=== PATIENT | male | born 1965 | race Caucasian/White ===

== ENCOUNTER 2018-12-22 12:41 | Inpatient (IN) | payer OTHER ==
[~2018-12-22] VITALS: Ht 167.6 cm; Wt 88.0 kg
[2018-12-31] MEDS ORDERED: TEGRETOL200 MG PO (14:16)
[2018-12-31] MEDS ORDERED: GABAPENTIN600 MG PO (14:16)
[2019-01-07] MEDS ORDERED: NORFLEX100MG PO (08:06)
[2019-01-07] MEDS ORDERED: NAPROXEN SODIU550 MG PO (08:06)
[2019-01-13] MEDS ORDERED: NORFLEX100MG PO (14:38)
[2019-01-13] MEDS ORDERED: HYOSCYAMINE0.125 M1 SL (14:38)
[2019-01-13] MEDS ORDERED: OXYC1TAB9 PO (14:39)
== END 2019-01-13 17:07 | disposition home or self-care (01) | DRG 330 ==
LOC: SURG 01-06 09:00 → O/R 01-06 09:00 → SURG 01-06 13:15 → SURH 01-06 19:15 → O/R 01-06 19:39 → SURG 01-07 06:38
PROVIDERS: ADMIT Colon & Rectal Surgery
PROC: 0DNP0ZZ Release Rectum, Open Approach (ICD-10-PCS; 2019-01-06)
PROC: 0TQB0ZZ Repair Bladder, Open Approach (ICD-10-PCS; 2019-01-06)
PROC: 0D1L074 Bypass Transverse Colon to Cutaneous with Autologous Tissue Substitute, Open Approach (ICD-10-PCS; 2019-01-06)
PROC: 0DQB0ZZ Repair Ileum, Open Approach (ICD-10-PCS; principal; 2019-01-06 13:15)
DX: C20 Malignant neoplasm of rectum (principal); K92.1 Melena; K56.51 Intestinal adhesions [bands], with partial obstruction; K91.71 Accidental puncture and laceration of a digestive system organ or structure during a digestive system procedure; N99.72 Accidental puncture and laceration of a genitourinary system organ or structure during other procedure; G40.909 Epilepsy, unspecified, not intractable, without status epilepticus; R59.0 Localized enlarged lymph nodes; K63.89 Other specified diseases of intestine; M54.41 Lumbago with sciatica, right side